=== PATIENT | female | born 1965 | race African-American/Black ===

== ENCOUNTER 2021-06-14 07:47 | Emergency (ER) | payer MEDICAID ==
[~2021-06-14] VITALS: Ht 160 cm; Wt 84.1 kg
[2021-06-14] MEDS ORDERED: LOSA25TA21 PO (07:48)
[2021-06-14] MEDS ORDERED: HYDR25TA2 PO (07:48)
[2021-06-14] MEDS ORDERED: KETOROLAC TROMETHAMINE 60 MG/2 ML VIAL IM ONE (08:45)
[2021-06-14] MEDS ORDERED: BACLOFEN 10 MG TABLET PO ONE (08:45)
[2021-06-14] MEDS ORDERED: LIDOCAINE 5% TRANSDERMAL PATCH TD ONE (08:45)
[2021-06-14 09:28] VITALS: BP 158/87
== END 2021-06-14 09:37 | disposition home or self-care (01) ==
LOC: EMS 07:47
DX: S16.1XXA Strain of muscle, fascia and tendon at neck level, initial encounter (principal); M62.838 Other muscle spasm; I10 Essential (primary) hypertension; Z79.899 Other long term (current) drug therapy; X50.9XXA Other and unspecified overexertion or strenuous movements or postures, initial encounter; Y93.89 Activity, other specified; Y92.89 Other specified places as the place of occurrence of the external cause; Y99.8 Other external cause status
CPT/HCPCS: 96372; 99283; J1885